=== PATIENT | female | born 1980 | race Caucasian/White ===

== ENCOUNTER 2021-11-14 11:32 | Outpatient (REF) | payer OTHER, SELFPAY | END 2021-11-14 11:33 | disposition home or self-care (01) | LOC: HO.MDS 11:32 | PROVIDERS: Visit Provider Internal Medicine | DX: D50.9 Iron deficiency anemia, unspecified (principal) | CPT/HCPCS: 96365; J2916 ==

== ENCOUNTER 2022-08-22 12:34 | Outpatient (REF) | payer OTHER, SELFPAY | END 2022-08-22 12:35 | disposition home or self-care (01) | LOC: HO.MDS 12:34 | PROVIDERS: Visit Provider Internal Medicine | DX: D50.9 Iron deficiency anemia, unspecified (principal) | CPT/HCPCS: 96365; J1756 ==

== ENCOUNTER 2022-08-25 11:18 | Outpatient (REF) | payer OTHER, SELFPAY | END 2022-08-25 11:19 | disposition home or self-care (01) | LOC: HO.MDS 11:18 | PROVIDERS: Visit Provider Internal Medicine | DX: D50.9 Iron deficiency anemia, unspecified (principal) | CPT/HCPCS: 96365; J1756 ==

== ENCOUNTER 2022-08-30 12:20 | Outpatient (REF) | payer OTHER, SELFPAY | END 2022-08-30 12:21 | disposition home or self-care (01) | LOC: HO.MDS 12:20 | PROVIDERS: Visit Provider Internal Medicine | DX: D50.9 Iron deficiency anemia, unspecified (principal) | CPT/HCPCS: 96365; J1756 ==

== ENCOUNTER 2022-09-05 11:15 | Outpatient (REF) | payer OTHER, SELFPAY | END 2022-09-05 11:16 | disposition home or self-care (01) | LOC: HO.MDS 11:15 | PROVIDERS: Visit Provider Internal Medicine | DX: D50.9 Iron deficiency anemia, unspecified (principal) | CPT/HCPCS: 96374; J1756 ==

== ENCOUNTER 2022-09-07 10:25 | Outpatient (REF) | payer OTHER, SELFPAY | END 2022-09-07 10:26 | disposition home or self-care (01) | LOC: HO.MDS 10:25 | PROVIDERS: Visit Provider Internal Medicine | DX: D50.9 Iron deficiency anemia, unspecified (principal) | CPT/HCPCS: 96365; J1756 ==

== ENCOUNTER 2022-10-19 08:26 | Outpatient (AMB) | payer OTHER, SELFPAY ==
[2022-10-19 08:28] VITALS: BP 122/84; BMI 36.1
--- NOTE | 2022-10-19 08:28 | A.OFFVIS_ITS ---
Intake Vital Signs 10/19/22 08:28 Height 5 ft Weight 185 lb BMI 36.1 BP 122/84 Intake Visit Reasons: New patient Heavy bleeding referred by pcp Intake Note: The patient agreed to use of a medical billing manager during this encounter. Scribed for CHAU Huertas by Yvonne Amaral, medical billing manager, on 10/19/2022 at 8:41 am ES T Freight Rate Clerk: Freight Rate Clerk Present (Kailyn) Allergies penicillin V Allergy (Unknown, Verified 10/19/22 08:31) angioedema Is last menstrual period known: Yes Last menstrual period: 10/15/22 HPI HPI Comments History of Present Illness Details She is a new patient here today via PCP referral for HMB. Her menses last for almost 2 weeks with and spotting afterwords and pelvic cramping. Has been experiencing this for the past 2 years. History of multiple fibroids. States she take ibuprofen for pain management. Reports she receives iron infusions. H/H=6.8/27.0. She had follow up w/PCP, repeat labs not available at visit. Currently sexually active and has a tubal ligation. [facility] Medical History (Updated 10/19/22 @ 09:15 by Yvonne Amaral) Anemia Depression Fibroids Heavy menstrual bleeding Surgical History (Updated 10/19/22 @ 09:15 by Yvonne Amaral) H/O section H/O gastric sleeve H/O tubal ligation Hx of cholecystectomy Family History Maternal Grandmother History of breast cancer Maternal Grandfather Prostate cancer Mother Lupus Social History Alcohol intake: current Alcohol intake frequency: holidays/special occasions only Patient Tobacco Use Status: Former Tobacco user Sexually active: No Sexual orientation: Straight/Heterosexual Gender identity: Female Female Reproductive History Menstrual Duration of menses: 6-7 days Date of last menstrual period: 10/15/22 Total pregnancies: 2 Full term: 2 Number of Living Children: 2 Physical Exam Vital Signs: Last Vital Signs BP 122/84 10/19/22 08:28 BMI result Body Mass Index 36.1 Const General: cooperative, healthy appearing, comfortable, no acute distress, well developed, alert, awake and Physically active Other: General: Yes bladder normal to palpation External Female Exam: normal external appearance and normal appearance of the urethra Speculum Exam - Vagina: normal appearance of the vagina, normal palpation and normal vaginal discharge Speculum Exam - Cervix: normal appearance of the cervix, normal palpation and Other cervical findings present (small amount of blood present) Bimanual exam- vagina & uterus: normal bimanual exam, normal palpation, bladder normal to palpation and normal palpation Bimanual Exam- Adnexa, other: normal adnexae and no masses Results Reviewed Results Reviewed: US were printed and reviewed. Report not available in system as yet. Assessment & Plan Assessment & Plan (1) Heavy menstrual bleeding: Code(s): N92.0 - Excessive and frequent menstruation with regular cycle Plan: Discussed: Sign release of records for pap results, CBC and TSH from PCP. Recent US findings of multiple fibroids: Leiomyoma: common pelvic neoplasm. Differential diagnosis-may include leiomyosarcoma which is a rare uterine sarcoma 3-7/100,000, difficult to distinguish from fibroids on ultrasound from uterine sarcoma's. Unlikely any single test will have a highly positive pre dictive value. Hysterectomy is not recommended for sole purpose of excluding malignant neoplasm. Report and increase in pelvic pressure, bloating, or pain. Consult for surgical exploration verses expectant management offered. Patient prefers medical management with a Mirena IUD. Expectant management follow up in 6 months, then yearly for stability. Small risks of leiomyosarcoma, advised to call for any abnormal bleeding, pelvic pain, increased abdominal pressure or bloating for sooner evaluation. US in 6 months then yearly unless otherwise indicated. Discussed work up including EMB. The EMB purpose was explained to rule out atypia, hyperplasia and uterine cancer. Reviewed procedure and instructed to take ibuprofen with food 1 hour prior to procedure. Reviewed different BC options for cycle control including IUD. Literature given. Will have further discussion at next visit. All of her questions and concerns were addressed to the best of my ability and shared decision making. She is agreeable to plan of care. (2) Fibroids: Comment: multiple Code(s): D21.9 - Benign neoplasm of connective and other soft tissue, unspecified Coding Level of Care Code New Pt Level 4 (13416) Diagnoses Heavy menstrual bleeding N92.0 Fibroids D21.9
== END 2022-10-19 09:14 | disposition home or self-care (01) ==
LOC: HO.HWS 08:26
PROVIDERS: PCP Internal Medicine; Visit Provider Advanced Practice Midwife
DX: N92.0 Excessive and frequent menstruation with regular cycle (principal); D21.9 Benign neoplasm of connective and other soft tissue, unspecified
CPT/HCPCS: 99204

== ENCOUNTER → 2022-10-19 08:26 | Outpatient (BNVA) | payer OTHER, SELFPAY | PROVIDERS: PCP Internal Medicine; Visit Provider Advanced Practice Midwife | DX: N92.0 Excessive and frequent menstruation with regular cycle (principal); D21.9 Benign neoplasm of connective and other soft tissue, unspecified | CPT/HCPCS: 99202 ==

== ENCOUNTER 2022-11-15 07:52 | Outpatient (REF) | payer OTHER, SELFPAY ==
[2022-11-16 12:02] LABS: CT PCR NOT DETECTED (Not Detect.); NG PCR NOT DETECTED (Not Detect.)
[2022-11-16 15:17] LABS: BV Int Neg Control Negative (Negative); BV Int Pos Control Positive (Positive)
== END 2022-11-15 07:53 | disposition home or self-care (01) ==
LOC: HO.LAB 07:52
PROVIDERS: PCP Internal Medicine; Visit Provider Advanced Practice Midwife
DX: D21.9 Benign neoplasm of connective and other soft tissue, unspecified (principal); N92.0 Excessive and frequent menstruation with regular cycle; Z30.430 Encounter for insertion of intrauterine contraceptive device; Z71.2 Person consulting for explanation of examination or test findings
CPT/HCPCS: 0353U; 58100; 58300; 87480; 87510; 87660; 88305

== ENCOUNTER 2022-11-15 08:56 | Outpatient (REF) | payer OTHER, SELFPAY | END 2022-11-15 08:57 | disposition home or self-care (01) | LOC: HO.LNP 08:56 | PROVIDERS: Visit Provider Advanced Practice Midwife | DX: Z13.89 Encounter for screening for other disorder (principal) ==

== ENCOUNTER 2022-12-20 13:06 | Outpatient (AMB) | payer OTHER, SELFPAY ==
[2022-12-20 13:10] VITALS: BP 110/68; BMI 36.5
--- NOTE | 2022-12-20 13:10 | A.OFFVIS_ITS ---
Intake Vital Signs 12/20/22 13:10 Height 5 ft Weight 187 lb BMI 36.5 BP 110/68 Intake Visit Reasons: iud check 4-6 weeks Intake Note: The patient agreed to use of a behavioral medical director during this encounter. Scribed for CHAU Huertas by Yvonne Amaral behavioral medical director, on 12/20/2022 at 1:36 pm EST. Land Leveler: Land Leveler Present (Kailyn) Allergies penicillin V Allergy (Unknown, Verified 12/20/22 13:13) angioedema Is last menstrual period known: Yes Last menstrual period: 12/10/22 HPI HPI Comments History of Present Illness Details She is presenting for Mirena IUD check. She had the Mirena IUD placed on 11/15/22. She has no concerns. She denies pain, abnormal discharge, or other concerns. [facility] Medical History Depression Heavy menstrual bleeding Fibroids Anemia Surgical History H/O tubal ligation H/O section Hx of cholecystectomy H/O gastric sleeve Family History Maternal Grandmother History of breast cancer Maternal Grandfather Prostate cancer Mother Lupus Social History Alcohol intake: current Alcohol intake frequency: holidays/special occasions only Patient Tobacco Use Status: Former Tobacco user Sexual orientation: Straight/Heterosexual Gender identity: Female Female Reproductive History Menstrual Date of last menstrual period: 12/10/22 control method: progestin IUCD (Mirena 11/15/22; IUD strings visible 12/20/22) Physical Exam Vital Signs: Last Vital Signs BP 110/68 12/20/22 13:10 BMI result Body Mass Index 36.5 Const General: cooperative, healthy appearing, comfortable, no acute distress, well developed, alert and awake Other: anterior cervix; small amount of dark red blood present General: Yes bladder normal to palpation External Female Exam: normal external appearance and normal appearance of the urethra Speculum Exam - Vagina: normal appearance of the vagina, normal palpation and normal vaginal discharge Speculum Exam - Cervix: normal appearance of the cervix, normal palpation and Other cervical findings present (IUD strings palpable @ 3'oclock 1/4 inch long) Bimanual exam- vagina & uterus: normal bimanual exam, normal palpation, bladder normal to palpation and normal palpation Bimanual Exam- Adnexa, other: normal adnexae and no masses Assessment & Plan Assessment & Plan (1) IUD surveillance: Code(s): Z30.431 - Encounter for routine checking of intrauterine contraceptive device Plan: Discussed: Bleeding tends to taper down, some women do not bleed at all for months, some have unscheduled and random bleeding. Monitor bleeding and cramps for the next 1-2 months and contact office with any concerns or questions. Release pap records from PCP. Schedule mammogram and annual developmental electronics assembler exam. All of her questions and concerns were addressed to the best of my ability and shared decision making. She is agreeable to plan of care. Orders: Orders MM tomosynthesis screening BI Today Z12.31 - Encounter for screening mammogram for malignant neoplasm of breast Coding Level of Care Code Est Pt Level 2 (14221) Diagnoses IUD surveillance Z30.431
== END 2022-12-20 13:49 | disposition home or self-care (01) ==
PROVIDERS: PCP Internal Medicine; Visit Provider Advanced Practice Midwife
DX: Z30.431 Encounter for routine checking of intrauterine contraceptive device (principal)
CPT/HCPCS: 99212

== ENCOUNTER → 2022-12-20 13:06 | Outpatient (BNVA) | payer OTHER, SELFPAY | PROVIDERS: PCP Internal Medicine; Visit Provider Advanced Practice Midwife | DX: Z30.431 Encounter for routine checking of intrauterine contraceptive device (principal) | CPT/HCPCS: 99212 ==

== ENCOUNTER 2023-01-18 08:30 | Outpatient (REF) | payer OTHER, SELFPAY | END 2023-01-18 08:31 | disposition home or self-care (01) | LOC: HO.MAMMO 08:30 | PROVIDERS: PCP Internal Medicine; Visit Provider Advanced Practice Midwife | DX: Z12.31 Encounter for screening mammogram for malignant neoplasm of breast (principal) | CPT/HCPCS: 77063; 77067 ==

== ENCOUNTER → 2023-01-18 08:45 | Outpatient (BNV) | payer OTHER, SELFPAY | PROVIDERS: PCP Internal Medicine; Visit Provider Radiology Diagnostic Radiology | DX: Z12.31 Encounter for screening mammogram for malignant neoplasm of breast (principal) | CPT/HCPCS: 77063; 77067 ==

== ENCOUNTER 2025-03-27 09:46 | Outpatient (REF) | payer MEDICAID, SELFPAY ==
--- OUTSIDE RECORDS SUMMARY | 2025-03-27 10:37 | XMS_ITS | Clinical Summary ---
Author Organization [facility] Address [address] [place] [address] Phone Care Team Providers Care Communications Intern Name Role Phone Adrianna Dowell MD Primary Care Provider Allergies Active Allergy Reactions Criticality Noted Date Comments Penicillins Anaphylaxis High 09/28/2024 Surgical History Surgery Date Site/Laterality Comments CHOLECYSTECTOMY PROCEDURE: HISTORICAL CHOLECYSTECTOMY OTHER SURGICAL HISTORY PROCEDURE: ---- OTHER ----; COMMENT: sleeve gastrectomy 01/20 Medical History Medical History Date Comments History of gastrointestinal stromal tumor (GIST) 09/07/2017 DX:History of gastrointestin al stromal tumor (GIST); COMMENT: Low grade, excised 01/20 Morbid obesity with BMI of 4 0.0-44.9, adult (CMS/HCC V24, CMS/HCC V28) 09/07/2017 DX:Morbid obesity wit h BMI of 40.0-44.9, adult ([facility]) Family History Medical History Relation Name Comments Breast cancer Maternal Grandmother Other: lupus Mother meningitis Other: hiv Uncle AIDS Relation Name Status Comments Maternal Grandmother Mother Uncle Social History Tobacco Use Types Packs/Day Years Used Date Smoking Tobacco: Never Smokeless Tobacco: Never Alcohol Use Standard Drinks/Week Comments No 0 (1 standard drink = 0.6 oz pur e alcohol) Comments Unknown Sex and Gender Information Value Date Recorded Sex Assigned at Not on file Legal Sex Female 2:13 PM EST Gender Identity Not on file Sexual Orientation Not on file Last Filed Vital Signs Vital Sign Reading Time Taken Comments Blood Pressure 118/75 09/28/2024 10:34 AM EDT Pulse 74 09/28/2024 10:34 AM EDT Temperature 37.1 C (98.7 F) 09/28/2024 10:34 AM EDT Respiratory Rate 17 09/28/2024 10:34 AM EDT Oxygen Saturation 100% 09/28/2024 10:34 AM EDT Inhaled Oxygen Concentration - - Weight 74.4 kg (164 lb) 09/28/2024 8:24 AM EDT Height 160 cm (5' 3 ) 09/28/2024 8:24 AM EDT Body Mass Index 29.05 09/28/2024 8:24 AM EDT Plan of Treatment Health Maintenance Due Date Last Done Comments Colorectal Cancer Screening: Colonoscopy 1980 DTaP,Tdap,and Td Vaccines (1 - Tdap) 12/07/1998 Hepatitis B Vaccines (1 of 3 - 19+ 3-dose series) 12/07/1998 Cervical Cancer Screening: P ap Smear 12/07/2000 HPV Vaccines (1 - 3-dose SCD M series) 12/07/2006 HIV Screening 03/08/2022 Hepatitis C Screening 03/08/2022 Social Influencers of Health Screening 03/08/2022 Breast Cancer Screening 06/13/2023 06/12/2021 Depression Screening 04/09/2024 COVID-19 Vaccine (3 - 2024-2 6 season) 2024 05/25/2021, 05/04/2021 Influenza Vaccine (#1) 2024 Cholesterol Screening (Lipid Panel) 01/29/2030 01/29/2025 RSV Immunization Adult Patients (1 - 1-dose 75+ series) 12/07/2054 HIB Vaccines Aged Out No longer eligi ble based on patient's age to complete this topic Hepatitis A Vaccines Aged Out No long er eligible based on patient's age to complete this topic IPV Vaccines Aged Out No longer eligi ble based on patient's age to complete this topic MMR Vaccines Aged Out No longer eligi ble based on patient's age to complete this topic Meningococcal ACWY Vaccine Aged Out N o longer eligible based on patient's age to complete this topic Meningococcal B Vaccine Aged Out No l onger eligible based on patient's age to complete this topic Pneumococcal Vaccine: Pediatrics (0 to 5 Years) and At-Risk Patients (6 to 49 Years) Aged Out No longer eligible b ased on patient's age to complete this topic RSV Immunization Patients Under 20 months Aged Out No longer eligible b ased on patient's age to complete this topic Varicella Vaccines Aged Out No longer eligible based on patient's age to complete this topic Procedures Procedure Name Priority Date/Time Associated Diagnosis Comments CBC WITH AUTO DIFFERENTIAL Routine 01/29/2025 12:31 PM EDT Iron deficiency anemia secondary to inadequate dietary iron intake Severe major depression without psychotic features (CMS/HCC V24, CMS/HCC V28) Lumbago Encounter for general adult medical examination with abnormal findings Bariatric surgery status CBC AND DIFFERENTIAL Routine 01/29/2025 12:31 PM EDT Iron deficiency anemia secondary to inadequate dietary iron intake Severe major depression without psychotic features (CMS/HCC V24, CMS/HCC V28) Lumbago Encounter for general adult medical examination with abnormal findings Bariatric surgery status FERRITIN Routine 01/29/2025 12:31 PM EDT Iron deficiency anemia secondary to inadequate dietary iron intake Severe major depression without psychotic features (CMS/HCC V24, CMS/HCC V28) Lumbago Encounter for general adult medical examination with abnormal findings Bariatric surgery status VITAMIN B12 Routine 01/29/2025 12:31 PM EDT Iron deficiency anemia secondary to inadequate dietary iron intake Severe major depression without psychotic features (CMS/HCC V24, CMS/HCC V28) Lumbago Encounter for general adult medical examination with abnormal findings Bariatric surgery status LIPID PANEL WITH REFLEX TO DIRECT LDL Routine 01/29/2025 12:31 PM EDT Iron deficiency anemia secondary to inadequate dietary iron intake Severe major depression without psychotic features (CMS/HCC V24, CMS/HCC V28) Lumbago Encounter for general adult medical examination with abnormal findings Bariatric surgery status COMPREHENSIVE METABOLIC PANEL Routine 01/29/2025 12:31 PM EDT Iron deficiency anemia secondary to inadequate dietary iron intake Severe major depression without psychotic features (CMS/HCC V24, CMS/HCC V28) Lumbago Encounter for general adult medical examination with abnormal findings Bariatric surgery status MAI SCREENING DIGITAL Routine 06/12/2021 9:21 AM EST Encounter for screening mammogram for malignant neoplasm of breast from Last 3 Months or Most Recently Relevant to Health Maintenance Results * Lipid panel with reflex to direct LDL (01/29/2025 12:31 PM EDT) Cholesterol 156 0 - 200 mg/dL LAB CHEMISTRY METHOD 01/29/2025 3:[address] [facility] Triglycerides 43 0 - 150 mg/dL LAB CHEMISTRY METHOD 01/29/2025 3:[address] [facility] HDL 51 >=40 mg/dL LAB CHEMISTRY METHOD 01/29/2025 3:[address] [facility] LDL Calculated 96 0 - 100 mg/dL LAB CHEMISTRY METHOD 01/29/2025 3:[address] [facility] Comment:Estimated LDL Calcul ated using equation: Total cholesterol - HDL cholesterol - (Triglycerides/5) VLDL Cholesterol Graeme 8.6 mg/dL LAB CHEMISTRY METHOD 01/29/2025 3:[address] [facility] Non HDL Chol. (LDL+VLDL) 105 <145 mg/dL LAB CHEMISTRY METHOD 01/29/2025 3:[address] [facility] Chol/HDL Ratio 3.1 0.0 - 4.4 LAB CHEMISTRY METHOD 01/29/2025 3:[address] [facility] Blood Venous blood specimen / Unknown Venipuncture / Unknown 01/29/2025 12:31 PM EDT 01/29/2025 12:46 PM EDT us Adrianna Dowell MD LAB BLOOD ORDERABLES Final Re sult [facility] [address] [place] [address], [place] [phone] * (ABNORMAL) CBC auto differential (01/29/2025 12:31 PM EDT) WBC 4.9 4.8 - 10.8 K/mcL LAB HEMETOLOGY METHOD 01/29/2025 1:17 PM [facility] RBC 4.80 3.80 - 4.80 M/mcL LAB [facility] Hemoglobin 9.4(L) 11.5 - 16.0 g/dL LAB HEMETOLOGY METHOD 01/29/2025 1:17 PM [facility] Hematocrit 33.2(L) 35.0 - 47.0 % LAB HEMETOLOGY METHOD 01/29/2025 1:17 PM [facility] MCV 68.9(L) 79.0 - 98.0 FL LAB HEMETOLOGY METHOD 01/29/2025 1:17 PM [facility] MCH 19.5(L) 27.0 - 32.0 pcg LAB HEMETOLOGY METHOD 01/29/2025 1:17 PM [facility] MCHC 28.3(L) 32.0 - 37.0 g/dL LAB HEMETOLOGY METHOD 01/29/2025 1:17 PM [facility] RDW 17.2(H) 11.0 - 15.0 % LAB HEMETOLOGY METHOD 01/29/2025 1:17 PM [facility] Platelets 388 130 - 400 K/mcL LAB HEMETOLOGY METHOD 01/29/2025 1:17 PM [facility] MPV 9.1 7.0 - 11.0 FL LAB HEMETOLOGY [facility]2025 [facility] NRBC 0.0 <1.0 % LAB HEMETOLOGY METHOD 01/29/2025 1:17 PM [facility] NRBC Absolute 0.00 <0.10 K/mcL LAB HEMETOLOGY METHOD 01/29/2025 1:17 PM [facility] Neutrophils Relative 52.2 % LAB HEMETOLOGY METHOD 01/29/2025 1:[address] [facility] Lymphocytes Relative 34.4 % LAB HEMETOLOGY METHOD 01/29/2025 1:17 PM [facility] Monocytes Relative 9.9 % LAB HEMETOLOGY METHOD 01/29/2025 1:17 PM [facility] Eosinophils Relative 1.9 % LAB HEMETOLOGY METHOD 01/29/2025 1:17 PM [facility] Basophils Relative 1.4 % LAB HEMETOLOGY METHOD 01/29/2025 1:17 PM [facility] Immature Granulocytes Relative 0.2 % LAB HEMETOLOGY METHOD 01/29/2025 1:17 PM [facility] Neutrophils Absolute 2.54 1.50 - 7.00 K/mcL LAB HEMETOLOGY METHOD 01/29/2025 1:17 PM [facility] Lymphocytes Absolute 1.67 1.00 - 5.00 K/mcL LAB HEMETOLOGY METHOD 01/29/2025 1:17 PM [facility] Monocytes Absolute 0.48 0.20 - 1.00 K/mcL LAB HEMETOLOGY METHOD 01/29/2025 1:17 PM [facility] Eosinophils Absolute 0.09 0.00 - 0.50 K/mcL LAB HEMETOLOGY METHOD 01/29/2025 1:17 PM [facility] Basophils Absolute 0.07 0.00 - 0.20 K/mcL LAB HEMETOLOGY METHOD 01/29/2025 1:17 PM [facility] Immature Granulocytes Absolute 0.01 0.00 - 0.03 K/mcL LAB HEMETOLOGY METHOD 01/29/2025 1:17 PM [facility] Blood Venous blood specimen / Unknown Venipuncture / Unknown 01/29/2025 12:31 PM EDT 01/29/2025 12:46 PM EDT us Adrianna Dowell MD LAB BLOOD ORDERABLES Final Re sult Performing Organization Address [facility]/ZIP Co de Phone Number [facility] [address] [place] [address], [place] [phone] * (ABNORMAL) Ferritin (01/29/2025 12:31 PM EDT) [facility] Ferritin 2(L) 8 - 252 ng/mL LAB CHEMISTRY METHOD 01/29/2025 3:[address] [facility] Blood Venous blood specimen / Unknown Venipuncture / Unknown 01/29/2025 12:31 PM EDT 01/29/2025 12:46 PM EDT us Adrianna Dowell MD LAB BLOOD ORDERABLES Final Re sult Performing Organization Address [facility] Co de Phone Number [facility] [address] [place] [address], [place] [phone] * Vitamin B12 (01/29/2025 12:31 PM EDT) [facility] Vitamin B-12 383 250 - 900 pcg/mL LAB CHEMISTRY METHOD 01/29/2025 3:[address] [facility] Blood Venous blood specimen / Unknown Venipuncture / Unknown 01/29/2025 12:31 PM EDT 01/29/2025 12:46 PM EDT us Adrianna Dowell MD LAB BLOOD ORDERABLES Final Re sult Performing Organization Address City/[facility]/ZIP Co de Phone Number [facility] [address] [place] [address], [place] [phone] * (ABNORMAL) Comprehensive metabolic panel (01/29/2025 12:31 PM EDT) Sodium 137 133 - 145 mmol/L LAB CHEMISTRY METHOD 01/29/2025 3:29 PM [facility] Potassium 4.6 3.5 - 5.5 mmol/L LAB CHEMISTRY METHOD 01/29/2025 3:29 PM [facility] Chloride 108 96 - 110 mmol/L LAB CHEMISTRY METHOD 01/29/2025 3:29 PM [facility] CO2 26 21 - 32 mmol/L LAB CHEMISTRY METHOD 01/29/2025 3:29 PM [facility] Anion Gap 3 3 - 11 LAB CHEMISTRY METHOD 01/29/2025 3:29 PM [facility] Glucose 94 70 - 100 mg/dL LAB CHEMISTRY METHOD 01/29/2025 3:29 PM [facility] BUN 16 5 - 25 mg/dL LAB CHEMISTRY METHOD 01/29/2025 3:29 PM [facility] Creatinine 0.66 0.50 - 1.10 mg/dL LAB CHEMISTRY METHOD 01/29/2025 3:29 PM [facility] eGFR 110 >=60 mL/min/1. 73m2 LAB CHEMISTRY METHOD 01/29/2025 3:29 PM [facility] Comment:Calculation based on the Chronic Kidney Disease Epidemiology Collaboration (CKD-EPI) equation refit without adjustment for race. BUN/Creatinine Ratio 24.2 LAB CHEMISTRY METHOD 01/29/2025 3:29 PM [facility] Calcium 9.4 8.5 - 10.5 mg/dL LAB CHEMISTRY METHOD 01/29/2025 3:29 PM [facility] AST (SGOT) 15 10 - 42 unit/L LAB CHEMISTRY METHOD 01/29/2025 3:29 PM [facility] ALT (SGPT) 22 10 - 60 unit/L LAB CHEMISTRY METHOD 01/29/2025 3:29 PM [facility] Alkaline Phosphatase 41(L) 42 - 121 unit/L LAB CHEMISTRY METHOD 01/29/2025 3:[address] [facility] Total Protein 7.1 6.0 - 8.0 g/dL LAB CHEMISTRY METHOD 01/29/2025 3:[address] [facility] Albumin 3.9 3.2 - 5.0 g/dL LAB CHEMISTRY METHOD 01/29/2025 3:[address] [facility] Total Bilirubin 0.6 0.0 - 1.4 mg/dL LAB CHEMISTRY METHOD 01/29/2025 3:[address] [facility] Blood Venous blood specimen / Unknown Venipuncture / Unknown 01/29/2025 12:31 PM EDT 01/29/2025 12:46 PM EDT us Adrianna Dowell MD LAB BLOOD ORDERABLES Final Re sult [facility] [address] [place] [address], * MAI SCREENING DIGITAL (06/12/2021 9:21 AM EST) Anatomical Region Laterality Modality Mammography 06/11/2021 8:13 AM EST Narrative 06/12/2021 9:21 AM EST [facility] Diagnostic Imaging Department [address] [place] [address] Patient: FRANKIE SORIA/Age/Sex: 1980 - 40 - F Unit#: [id number] Location/Status: SPDIMAM/REG CLI Mnemonic/Ordering Site: DIGSC/SPDI Ordering Physician: ADRIANNA DOWELL MD Mai Screening Digital - 06/11/21833 INDICATION: ROUTINE COMPARISON: No prior studies are available for comparison. Baseline exam TECHNIQUE: CC and MLO views of the breasts were obtained, using full field digital mammography with 3D tomosynthesis views in the MLO projection. Computer aided detection with the [employer] 7.2-H was employed. FINDINGS: The breasts contain heterogeneously dense tissues, which may lower sensitivity of mammography in this patient. No suspicious masses, suspicious microcalcifications, or areas of architectural distortion are identified. There are no secondary signs of breast malignancy. IMPRESSION: No specific mammographic evidence of breast malignancy. Lack of an imaging correlate should not deter or delay biopsy of a clinically significant palpable finding. BI-RADS - Category 1: Negative 3341F, 7025F Annual screening mammography is recommended. Patient entered into a reminder system with a target date for the next mammogram. [id number] / [id number] , [id number] Dictating Physician: MANUEL ROB MD Electronically Signed by: MANUEL ROB MD Dic Date/Time: 06/12/21917 Sign date/Time: 06/12/21920 Procedure Note Manuel Rob MD - 03/29/2022 [facility] Diagnostic Imaging Department [address] [place] [address] Patient: FRANKIE SORIA /Age/Sex: 1980 - 40 - F Unit#: [id number] Location/Status: SPDIMAM/REG CLI Mnemonic/Ordering Site: [facility] Ordering Physician: ADRIANNA DOWELL MD Mai Screening Digital - 06/11/21833 INDICATION: ROUTINE COMPARISON: No prior studies are available for comparison. Baselineexam TECHNIQUE: CC and MLO views of the breasts were obtained, using full field digital mammography with 3D tomosynthesis views in the MLO projection. Computer aided detection with the [employer] 7.2-H was employed. FINDINGS: The breasts contain heterogeneously dense tissues, which may lowersensitivity of mammography in this patient. No suspicious masses, suspicious microcalcifications, or areas ofarchitectural distortion are identified. There are no secondary signs of breastmalignancy. IMPRESSION: No specific mammographic evidence of breast malignancy. Lack of an imaging correlate should not deter or delay biopsy of aclinically significant palpable finding. BI-RADS - Category 1: Negative 3341F, 7025F Annual screening mammography is recommended. Patient entered into a reminder system with a target date for the next mammogram. [id number] / [id number] , [id number] Dictating Physician: MANUEL ROB MD Electronically Signed by: MANUEL ROB MD Dic Date/Time: 06/12/21917 Sign date/Time: 06/12/21920 Adrianna Dowell MD IMG BI PROCEDURES Final Resul t from Last 3 Months or Most Recently Relevant to Health Maintenance Insurance MEDICAID - [place] Care Teams Communications Intern Relationship Specialty Start Date End Date Adrianna Dowell MD [address] [facility] [address] [place], [place] PCP - General Internal Medicine 07/17/17
== END 2025-03-27 09:47 | disposition home or self-care (01) ==
LOC: HO.MAMMO 09:46
PROVIDERS: PCP Internal Medicine; Visit Provider Internal Medicine
DX: Z12.31 Encounter for screening mammogram for malignant neoplasm of breast (principal)
CPT/HCPCS: 77063; 77067

== ENCOUNTER → 2025-03-27 10:00 | Outpatient (BNV) | payer MEDICAID, SELFPAY | PROVIDERS: PCP Internal Medicine; Visit Provider Internal Medicine | DX: Z12.31 Encounter for screening mammogram for malignant neoplasm of breast (principal) | CPT/HCPCS: 77063; 77067 ==